=== PATIENT | female | born 1975 | race Two or more races ===

== ENCOUNTER 2018-11-08 07:37 | Emergency (ER) ==
[~2018-11-08] VITALS: Ht 162.6 cm; Wt 127.0 kg
[2018-11-08 08:00] VITALS: BP 208/129
[2018-11-08] MEDS ORDERED: FAMOTIDINE (20 MG) 20 MG TABLET ONE (08:59)
[2018-11-08] MEDS ORDERED: predniSONE 20 MG TABLET ONE (08:59)
[2018-11-08] MEDS ORDERED: predniSONE 20 MG TABLET PO ONE (09:00)
[2018-11-08] MEDS ORDERED: FAMOTIDINE (20 MG) 20 MG TABLET PO ONE (09:00)
== END 2018-11-08 09:11 | disposition home or self-care (01) ==
LOC: ER 07:41
DX: L30.9 Dermatitis, unspecified (principal); L29.9 Pruritus, unspecified; I10 Essential (primary) hypertension; Z88.1 Allergy status to other antibiotic agents
CPT/HCPCS: 99283; J7512

== ENCOUNTER 2018-11-10 04:58 | Emergency (ER) ==
[~2018-11-10] VITALS: Ht 162.6 cm; Wt 127.0 kg
--- NOTE | 2018-11-10 05:13 | NUR ---
BIBSELF FROM HOME. AAOX4. BREATHING EVEN AND UNLABORED. PT DENIES CP. NO N/V. AMBULATORY. C/O POSSIBLE ALLERGIC REACTION. PT HAS BEE NOTED WITH SWELLING AROUND THE MOUTH. PT REPORTS TAKING BENADRYL THIS MORNING @3AM. PT WAS HERE ON TUESDAY D/T [facility]. AT BESIDE. AWAITING ORDERS.
[2018-11-10] MEDS ORDERED: FAMOTIDINE/PF INJ 20 MG/2 ML VIAL IV ONE ×2 (05:18→05:30)
[2018-11-10] MEDS ORDERED: methylPREDNISolone SOD SUCC 125 MG/2ML VIAL ONE (05:18)
[2018-11-10] MEDS ORDERED: methylPREDNISolone SOD SUCC 125 MG/2ML VIAL IV ONE (05:30)
[2018-11-10] MEDS ORDERED: IV NS 0.9% 500 ML BAG IV ONE (05:30)
--- NOTE | 2018-11-10 05:30 | NUR ---
IV LINE OBTAINED ON R AC 20G.
[2018-11-10] MEDS ORDERED: hydrALAZINE HCL IV 20 MG VIAL ONE (05:43)
[2018-11-10] MEDS ORDERED: hydrALAZINE HCL IV 20 MG VIAL IV ONE ×2 (06:00→07:30)
--- NOTE | 2018-11-10 06:15 | NUR ---
@0550 pts bp noted @ 203/131 gave hydralazine 10mg via iv. BP now is 180/98
--- NOTE | 2018-11-10 06:42 | NUR ---
PT AMBULATED TO BATHROOM WITHOUT ASSISTANCE
--- NOTE | 2018-11-10 06:59 | NUR ---
PT'S BP NOTED AT 206/127. MD MADE AWARE. VERBAL ORDER RECEIVED TO GIVE ANOTHER 10MG HYDRALAZINE. USED PREVEIOUS VIAL TAKEN WHICH STILL HAS 10MG LEFT.
[2018-11-10] MEDS ORDERED: AMLODIPINE BESYLATE 5 MG TABLET ONE (07:29)
[2018-11-10] MEDS ORDERED: ENALAPRILAT DIHYD. (2.5MG/ML) 1.25 MG/ML VIAL IV ONE (07:30)
[2018-11-10] MEDS ORDERED: AMLODIPINE BESYLATE 5 MG TABLET PO ONE (07:30)
[2018-11-10] MEDS ORDERED: ENALAPRILAT INJ (1.25 MG/ML) 1.25 MG/ML VIAL IV ONE (07:32)
--- NOTE | 2018-11-10 07:38 | NUR ---
REPORT GIVEN TO NEIL ZAVALETA FOR VIELKA
--- NOTE | 2018-11-10 08:48 | NUR ---
DR TALLEY AT BEDSIDE TALKING TO PT ABOUT PLAN OF CARE.
--- NOTE | 2018-11-10 09:04 | NUR ---
Patient discharged to home in stable condition. Written and verbal after care instructions given. Patient verbalizes understanding of instruction.IV removed. Catheter intact and site benign. Pressure and 4x4 applied to site. No bleeding noted.
[2018-11-10 09:05] VITALS: BP 176/109
== END 2018-11-10 09:05 | disposition home or self-care (01) ==
LOC: ER 04:58
DX: T78.3XXA Angioneurotic edema, initial encounter (principal); I16.0 Hypertensive urgency; I10 Essential (primary) hypertension; Z88.8 Allergy status to other drugs, medicaments and biological substances
CPT/HCPCS: 96374; 96375; 96376; 99283; J0360; J2930; J3490 ×2; J7040